=== PATIENT | female | born 1965 | race Caucasian/White ===

== ENCOUNTER → 2017-08-09 | Outpatient (CLI) | payer SELFPAY ==
--- NOTE | 2017-08-09 15:36 | RAD ---
LUMBAR SPINE 2-3V Clinical Indication: STATUS POST LUMBAR FUSION X 8 WKS Comparison: None. Findings: There are 5 nonrib-bearing lumbar-type vertebral bodies. The normal lumbar lordosis is maintained. 1.3 cm anterolisthesis of L4 on L5. Postsurgical changes of L4-L5 posterior fusion. No evidence of perihardware lucency or hardware fracture. The interbody disc spacer posterior radiopaque marker lines up directly with the posterior aspect of the L4 vertebral body. IMPRESSION: Postsurgical changes of L4-L5 posterior fusion. The interbody disc spacer posterior radiopaque marker lines up directly with the posterior aspect of the L4 vertebral body. 1.3 cm anterolisthesis of L4 on L5.
== END | disposition home or self-care (01) ==
LOC: DXRADRC 12:18
PROVIDERS: ATTEND Neurological Surgery
DX: M43.26 Fusion of spine, lumbar region (principal)
CPT/HCPCS: 72100

== ENCOUNTER → 2017-09-16 | Outpatient (CLI) | payer BC ==
--- NOTE | 2017-09-16 14:41 | RAD ---
DATE: September 16, 2017 EXAM: DIGITAL DIAGNOSTIC LT, BREAST LEFT HISTORY: Abnormal outside screening mammogram. COMPARISON: August 19, 2017. TECHNIQUE: Patient arrived for a limited left breast ultrasound. Subsequently, compression CC and MLO views along with an ML view of the left breast was performed. This study was interpreted with the benefit of Computerized Aided Detection (CAD). FINDINGS: Area of concern on screening mammogram has no correlate on the left breast ultrasound. Therefore, diagnostic mammogram was performed. Breast ultrasound demonstrated no abnormality elsewhere within the upper outer quadrant. The breast parenchyma demonstrates scattered fibroglandular densities, category B. The mass in the outer left breast at about the 3:00 position is well-circumscribed, appears to have a fatty notch. A second potential lesion deeper in the outer left breast also appears to have fatty notch. There are no suspicious groupings of microcalcifications . There are a few benign calcifications. IMPRESSION: Probably benign intraparenchymal lymph nodes in the left breast. BI-RADS CATEGORY: 3 PROBABLE BENIGN-SHORT TERM F/U RECOMMENDED FOLLOW-UP: 6M 6 MONTH FOLLOW-UP Follow-up will be a diagnostic left mammogram, with ultrasound if needed. PQRS compliance statement: Patient information was entered into a reminder system with a target due date for the next mammogram. Mammography is a sensitive method for finding small breast cancers, but it does not detect them all and is not a substitute for careful clinical examination. A negative mammogram does not negate a clinically suspicious finding and should not result in delay in biopsying a clinically suspicious abnormality. "Our facility is accredited by the [employer] Mammography Program."
== END | disposition home or self-care (01) ==
LOC: US 12:37
PROVIDERS: ATTEND Family Medicine
DX: R92.1 Mammographic calcification found on diagnostic imaging of breast (principal)
CPT/HCPCS: 76641; G0206; 77065

== ENCOUNTER → 2017-12-02 | Outpatient (CLI) | payer MEDICAID ==
--- NOTE | 2017-12-02 13:39 | RAD ---
3 views lumbar spine 12/02/2017 Indication: Low back pain. Comparison study: Lumbar spine radiographs August 09, 2017 Findings: Instrumented fusion now extends from L4 through S1. Associated laminectomy noted. Radiographically hardware appears to be intact. There is interval reduction in anterolisthesis of L4 and L5. Disc prosthesis remains in place. Anterolisthesis now measures approximately 5 mm. Near total loss of disc space at L5-S1 is similar. No evidence of acute fracture or alignment abnormality is identified. No acute soft tissue changes are seen. Impression: Postoperative changes as described. An acute osseous abnormality is not identified.
== END | disposition home or self-care (01) ==
LOC: DXRAD 13:00
PROVIDERS: ATTEND Neurological Surgery
DX: M54.5 Low back pain (principal); Z98.890 Other specified postprocedural states
CPT/HCPCS: 72100

== ENCOUNTER 2018-02-01 11:34 | Emergency (ER) | payer MEDICAID ==
[2018-02-01 11:40] VITALS: BP 112/64
[2018-02-01] MEDS ORDERED: AMOX1TAB61 PO (11:57)
[2018-02-01] MEDS ORDERED: LIDOCAINE 1% Multi-Dose 20 ML VIAL. ONE (11:57)
--- NOTE | 2018-02-01 11:58 | PHYS DOC ---
Adult General Chief Complaint Chief Complaint: DENTAL PROBLEM HPI HPI Patient is a 52-year-old female sent from urgent care with the complaint of dental abscess. Patient says this started yesterday. She has had a bad tooth for quite some time. She went to the urgent care but they sent her here. She denies fever or chills. States that she is having a lot of pain. She has Percocet at home and has taken that today. Allergic to sulfa Review of Systems Review of Systems Constitutional: Denies fever or chills [] HENT: As in history of present illness Respiratory: Denies shortness of breath [] Current Medications Current Medications Current Medications Medications (Trade) Dose Ordered Sig/Yehuda Start Time Stop Time Status Last Admin Dose Admin Lidocaine/Sodium Bicarbonate (Buffered Lidocaine 1%) 3 ml 1X ONCE 02/01/18 12:00 02/01/18 12:01 UNV Physical Exam Physical Exam Constitutional: Well developed, well nourished, appears uncomfortable, alert, mentating normally. HENT: Normocephalic, atraumatic, large area of swelling on the right lateral mandible area. No redness, no evidence of cellulitis. Oral exam: Diffuse significant dental disease including fractured teeth. Right mandibular first molar is fractured at the gumline. There is significant swelling external to the mandible. There is no clear fluctuant area and no clear bulging area indicative of abscess, but there is significant swelling in the gutter next to the affected tooth. Eyes: conjunctiva normal, no discharge. [] Neck: Normal range of motion, no stridor. [] Skin: Warm, dry, no erythema, no rash. [] Extremities: No tenderness, no cyanosis, no clubbing, ROM intact, no edema. [] Neurologic: Alert and oriented X 3, normal motor function, no focal deficits noted. [] EKG EKG [] Radiology/Procedures Radiology/Procedures Procedure: Incision and drainage of dental abscess 1% lidocaine plain, buffered was injected over the area of swelling in the gutter between the patient's fractured tooth and the area of swelling. A scalpel was used to make an incision lateral to the affected tooth over the area of expected abscess. Although I believe the incision was appropriately placed and deep enough, no purulent drainage was obtained.[] Course & Med Decision Making Course & Med Decision Making Pertinent Labs and Imaging studies reviewed. (See chart for details) 52-year-old female presents with swelling and pain adjacent to a fractured tooth. With the amount of swelling, I thought I might be able to get some drainage of pus, but despite appropriately placed incision, no pus was located. It may just be cellulitis at this time. We will start the patient on antibiotics and encourage dental follow-up as soon as possible. See instructions for plan. [] Dragon Disclaimer Dragon Disclaimer This electronic medical record was generated, in whole or in part, using a voice recognition dictation system. Departure Departure: Impression: Primary Impression: Dental abscess Disposition: HOME, SELF-CARE Condition: STABLE Referrals: ALETHEA VINSON DO (PCP) Patient Instructions: Dental Abscess Additional Instructions: It's very important to see your dentist on Saturday. Call first thing Saturday morning for an appointment. You need to have dental care, likely extraction of that tooth, before this will actually heal fully. Fill your prescription and start the antibiotics as directed immediately. Take the first dose immediately and the second dose at bedtime tonight, then every 12 hours after that. Drink plenty of fluids to stay hydrated and laid around and rest this weekend while getting the antibiotics into your system. If you have vomiting and are not able to stay hydrated or take your antibiotics , return to ER. Scripts Amoxicillin/Potassium Clav (AUGMENTIN 875-125 TABLET) 1 Each Tablet 1 TAB PO BID for dental abscess, #20 TAB Prov: ÁLVARO LABOY MD 02/01/18 ÁLVARO LABOY MD Feb 01, 2018 11:58
[2018-02-01] MEDS ORDERED: LIDOCAINE WITH 8.4% SOD BICARB 3 ML DISP.SYRIN. IJ ONE (12:00)
== END 2018-02-01 12:32 | disposition home or self-care (01) ==
LOC: ER 11:34
DX: K04.7 Periapical abscess without sinus (principal); Z88.2 Allergy status to sulfonamides
CPT/HCPCS: 41800; 99283

== ENCOUNTER 2018-02-24 15:23 | Emergency (ER) | payer MEDICAID ==
[~2018-02-24] VITALS: Ht 162.6 cm; Wt 98.9 kg
[~2018-02-24 15:23] MED LIST: AMOX1TAB61 PO
[2018-02-24] MEDS ORDERED: IV NORMAL SALINE 1,000ML 1,000 ML IV SCH (15:57)
[2018-02-24] MEDS ORDERED: 0.9 % SODIUM CHLORIDE 10 ML DISP.SYRIN. IV PRN (16:00)
[2018-02-24 16:15] LABS: BASO % 1 % (0-3); EOS # 0.5 x10^3/uL (0.0-0.7); EOS % 7 % (0-3); HEMATOCRIT 33.3 % (36.0-47.0); LYMPH # 2.3 x10^3/uL (1.0-4.8); LYMPH % 32 % (24-48); MEAN CORPUSCULAR HEMOGLOBIN 27 pg (25-35); MEAN CORPUSCULAR HGB CONC 33 g/dL (31-37); MEAN CORPUSCULAR VOLUME 81 fL (79-100); MONO # 0.4 x10^3/uL (0.0-1.1); MONO % 6 % (0-9); NEUT % 55 % (31-73); PLATELET COUNT 406 x10^3/uL (140-400); RED CELL DISTRIBUTION WIDTH 19.2 % (11.5-14.5); WHITE BLOOD COUNT 7.2 x10^3/uL (4.0-11.0)
[2018-02-24 16:26] LABS: AMPHETAMINE/METHAMPHETAMINE NEG (NEG); BARBITURATES NEG (NEG); BENZODIAZEPINES POS (NEG); CANNABINOIDS NEG (NEG); COCAINE NEG (NEG); METHADONE NEG (NEG); OPIATES NEG (NEG); PHENCYCLIDINE NEG (NEG)
[2018-02-24 16:29] LABS: ALBUMIN 3.4 g/dL (3.4-5.0); ALBUMIN/GLOBULIN RATIO 0.9 (1.0-1.7); CALCIUM 8.6 mg/dL (8.5-10.1); TOTAL BILIRUBIN 0.2 mg/dL (0.2-1.0); TOTAL PROTEIN 7.1 g/dL (6.4-8.2)
--- NOTE | 2018-02-24 16:30 | PHYS DOC ---
Past History Past Medical History: Anxiety, Bipolar, Depression, Hypertension Past Surgical History: , Hysterectomy, Other Alcohol Use: None Drug Use: None Adult General Chief Complaint Chief Complaint: NAUSEA/VOMITING/ABDOMINAL PAIN HPI HPI 52-year-old female patient with history of bipolar disorder and hypertension complaining of epigastric pain for 2 weeks as a constant pain that getting worse with eating. Patient states the pain is a sharp pain without radiation and rated her pain 4/10. Patient complaining of nausea and one episode of vomiting last night and intermittent episodes of diarrhea for the last 2 weeks. Patient was seen by her primary care physician yesterday and treated with GI cocktail without improvement of her condition. Patient state her doctor. office called her today and told she had abnormal lab and come to ER. Dr. pickens was contacted and he stated that patient had marked anemia and abnormal electrolyte with complaining of increasing abdominal pain and recommended to come to ER for a more evaluation. Review of Systems Review of Systems Constitutional: Reports subjective fever and chills] Eyes: Denies change in visual acuity, redness, or eye pain [] HENT: Denies nasal congestion or sore throat [] Respiratory: Denies cough or shortness of breath [] Cardiovascular: No additional information not addressed in HPI [] GI: Reports abdominal pain, nausea, vomiting, diarrhea [] : Denies dysuria or hematuria [] Musculoskeletal: Denies back pain or joint pain [] Integument: Denies rash or skin lesions [] Neurologic: Denies headache, focal weakness or sensory changes [] Endocrine: Denies polyuria or polydipsia [] All other systems were reviewed and found to be within normal limits, except as documented in this note. Current Medications Current Medications Current Medications Medications (Trade) Dose Ordered Sig/Yehuda Start Time Stop Time Status Last Admin Dose Admin Sodium Chloride (Normal Saline Flush) 10 ml QSHIFT PRN 02/24/18 16:00 Allergies Allergies Allergies Coded Allergies Type Severity Reaction Last Updated Verified Sulfa (Sulfonamide Antibiotics) Allergy Unknown 02/01/18 Yes Physical Exam Physical Exam Constitutional: Well well nourished, mild distress, non-toxic appearance. [] HENT: Normocephalic, atraumatic, oropharynx moist, no oral exudates. [] Eyes: PERRLA, EOMI, conjunctiva normal, no discharge. [] Neck: Normal range of motion, no tenderness, supple, no stridor. [] Cardiovascular:Heart rate regular rhythm, no murmur [] Lungs & Thorax: Bilateral breath sounds clear to auscultation [] Abdomen: Bowel sounds normal, epigastric and right upper quadrant guarding, soft , no tenderness, no masses, no pulsatile masses. [] Skin: Warm, dry, no erythema, no rash. [] Back: No tenderness, no CVA tenderness. [] Extremities: No tenderness, no cyanosis, no clubbing, ROM intact, no edema. [] Neurologic: Alert and oriented X 3, normal motor function, normal sensory function, no focal deficits noted. [] Psychologic: Anxious, judgement normal, mood normal. [] Current Patient Data Vital Signs Vital Signs Date Time Temp Pulse Resp B/P (MAP) Pulse Ox O2 Delivery O2 Flow Rate FiO2 02/24/18 15:32 99.0 104 16 97 Room Air Lab Results Laboratory Tests Test 02/24/18 15:50 White Blood Count 7.2 x10^3/uL (4.0-11.0) Red Blood Count 4.10 x10^6/uL (3.50-5.40) Hemoglobin 11.0 g/dL (12.0-15.5) L Hematocrit 33.3 % (36.0-47.0) L Mean Corpuscular Volume 81 fL (79-100) Mean Corpuscular Hemoglobin 27 pg (25-35) Mean Corpuscular Hemoglobin Concent 33 g/dL (31-37) Red Cell Distribution Width 19.2 % (11.5-14.5) H Platelet Count 406 x10^3/uL (140-400) H Neutrophils (%) (Auto) 55 % (31-73) Lymphocytes (%) (Auto) 32 % (24-48) Monocytes (%) (Auto) 6 % (0-9) Eosinophils (%) (Auto) 7 % (0-3) H Basophils (%) (Auto) 1 % (0-3) Neutrophils # (Auto) 4.0 x10^3uL (1.8-7.7) Lymphocytes # (Auto) 2.3 x10^3/uL (1.0-4.8) Monocytes # (Auto) 0.4 x10^3/uL (0.0-1.1) Eosinophils # (Auto) 0.5 x10^3/uL (0.0-0.7) Basophils # (Auto) 0.0 x10^3/uL (0.0-0.2) EKG EKG [] Radiology/Procedures Radiology/Procedures [] [address] [address] IMAGING REPORT Signed PATIENT: PIO ELLIOTT ACCOUNT: [id number] : 1965 LOCATION: ER AGE: 52 SEX: F EXAM STATUS: REG ER ORD. PHYSICIAN: SARAH OLGUIN MD REASON: epigastric pain PROCEDURE: ABDOMEN LTD EXAM: Abdomen sonogram. HISTORY: Pain. TECHNIQUE: Sonographic imaging of the abdomen was performed. COMPARISON: None. FINDINGS: The liver is normal in size. No focal hepatic lesion is seen. The gallbladder is unremarkable. The common bile duct is upper normal in caliber for patient age. The right kidney is unremarkable. The pancreas is partially obscured due to bowel gas. The inferior vena cava is patent. The aorta is not assessed. IMPRESSION: Relatively unremarkable abdomen sonogram, with limited evaluation of the pancreas due to bowel gas. Electronically signed by: Meg Crook MD (02/24/2018 5:27 PM) [facility] DICTATED AND SIGNED BY: MEG CROOK MD DATE: 02/24/18 1726 CC: ALETHEA VINSON DO; SARAH OLGUIN MD ~ Course & Med Decision Making Course & Med Decision Making Pertinent Labs and Imaging studies reviewed. (See chart for details) Evaluation of patient in ER showed 51-year-old female patient with complaining of chronic abdominal pain and nausea and vomiting. She had colonoscopy last year and had history of chronic hyponatremia and hypokalemia. Patient treated with IV fluid and Zofran and felt better. Patient informed to follow with her primary care physician regarding chronic abdominal pain and anemia. discharge: I've spoken with the patient and/or caregivers. I've explained the patient's condition, diagnosis and treatment plan based on information available to me at this time. I've answered the patient's and/or caregivers questions and addressed any concerns. The patient and/or caregivers have a good understanding the patient's diagnosis, condition and treatment plan as can be expected at this point. Vital signs have been stabilized. The patient's condition is stable for discharge from the emergency department. The patient will pursue further outpatient evaluation with her primary care provider or other designated consulting physician as outlined in the discharge instructions. Patient and/or caregivers are agreeable to this plan of care and follow-up instructions have been explained in detail. The patient and/or caregivers have received these instructions in written format and expressed understanding of these discharge instructions. The patient and her caregivers are aware that if any significant change in condition or worsening of symptoms should prompt him to immediately return to this of the closest emergency department. If an emergent department is not readily available I would encourage him to call 911. [] Dragon Disclaimer Dragon Disclaimer This electronic medical record was generated, in whole or in part, using a voice recognition dictation system. Departure Departure: Impression: Primary Impression: Chronic abdominal pain Additional Impressions: Anemia Hyponatremia Anxiety Nausea and vomiting Tobacco abuse Tobacco abuse counseling Disposition: HOME, SELF-CARE (At 1743) Condition: IMPROVED Referrals: ALETHEA VINSON DO (PCP) Patient Instructions: Abdominal Pain, Anemia, FAQs, Hyponatremia, Nausea and Vomiting, Smoking Cessation Additional Instructions: Follow-up with your primary care physician in 3-5 days Return to ER if not getting better Scripts Ranitidine Hcl (ZANTAC) 150 Mg Tablet 1 TAB PO BID, #30 TAB 3 Refills Prov: SARAH OLGUIN MD 02/24/18 Ondansetron (ZOFRAN ODT) 4 Mg Tab.rapdis 1 TAB SL Q8HRS, #15 TAB Prov: SARAH OLGUIN MD 02/24/18 Problem Qualifiers SARAH OLGUIN MD Feb 24, 2018 16:29
[2018-02-24 16:51] LABS: BACTERIA,URINE 0 /HPF (0-FEW); BILIRUBIN,URINE NEG (NEG); CLARITY,URINE HAZY; COLOR,URINE YELLOW; GLUCOSE,URINE NEG (NEG); NITRITE,URINE NEG (NEG); SQUAMOUS EPITHELIAL CELL,UR MANY /LPF; UROBILINOGEN,URINE 0.2 mg/dL (0.2 mg/dL)
[2018-02-24 16:52] LABS: HYALINE CASTS, URINE MANY /HPF
--- NOTE | 2018-02-24 17:30 | RAD ---
EXAM: Abdomen sonogram. HISTORY: Pain. TECHNIQUE: Sonographic imaging of the abdomen was performed. COMPARISON: None. FINDINGS: The liver is normal in size. No focal hepatic lesion is seen. The gallbladder is unremarkable. The common bile duct is upper normal in caliber for patient age. The right kidney is unremarkable. The pancreas is partially obscured due to bowel gas. The inferior vena cava is patent. The aorta is not assessed. IMPRESSION: Relatively unremarkable abdomen sonogram, with limited evaluation of the pancreas due to bowel gas. Electronically signed by: Meg Goodman MD (02/24/2018 5:27 PM) [facility]
[2018-02-24] MEDS ORDERED: ONDA4TAB10 SL (17:45)
[2018-02-24] MEDS ORDERED: RANI150T6 PO (17:45)
[2018-02-24 17:54] VITALS: BP 141/89
== END 2018-02-24 17:56 | disposition home or self-care (01) ==
LOC: ER 15:23
DX: G89.29 Other chronic pain (principal); R10.13 Epigastric pain; E87.1 Hypo-osmolality and hyponatremia; D64.9 Anemia, unspecified; F41.9 Anxiety disorder, unspecified; F31.9 Bipolar disorder, unspecified; I10 Essential (primary) hypertension; Z88.2 Allergy status to sulfonamides
CPT/HCPCS: 36415; 76705; 80053; 80307; 81001; 83690; 85025; 96360; 99285-25; G0479; J7030

== ENCOUNTER → 2018-11-17 | Outpatient (CLI) | payer BC, MEDICAID ==
[~2018-11-17] MED LIST changes: +ONDA4TAB10 SL; +RANI150T21 PO
--- NOTE | 2018-11-17 11:53 | RAD ---
DATE: 11/17/2018 EXAM: DIGITAL SCREEN BILAT W/CAD HISTORY: Routine screening COMPARISON: 08/19/2017, 09/16/2017 This study was interpreted with the benefit of Computerized Aided Detection (CAD). Breast Density: SCATTERED The breast parenchyma shows scattered fibroglandular densities. Breast parenchyma level B. FINDINGS: 2 nodules in the lateral aspect of the left breast are unchanged since the previous study. There probably intramammary lymph nodes. No new or enlarging breast densities are seen. Minimal benign type calcification is present. No suspicious microcalcifications have developed. IMPRESSION: 1. Stable small left breast nodules, probably intramammary lymph nodes. 2. No new mammographic abnormality is detected BI-RADS CATEGORY: 2 BENIGN FINDING(S) RECOMMENDED FOLLOW-UP: 12M 12 MONTH FOLLOW-UP PQRS compliance statement: Patient information was entered into a reminder system with a target due date for the next mammogram. Mammography is a sensitive method for finding small breast cancers, but it does not detect them all and is not a substitute for careful clinical examination. A negative mammogram does not negate a clinically suspicious finding and should not result in delay in biopsying a clinically suspicious abnormality. "Our facility is accredited by the [employer] Mammography Program."
--- NOTE | 2018-11-17 18:08 | RAD ---
CT of the paranasal sinuses without contrast, 11/17/2018: HISTORY: Sinusitis with headache Noncontrast scans were obtained with multiplanar reconstructions produced. There is mild mucosal thickening involving the anterior aspect of the left ethmoid sinus. This involves the left ethmoid infundibulum of the ostiomeatal complex. The other paranasal sinuses are clear. No free fluid is evident in the sinuses. No bony abnormality is detected. The orbital contents are unremarkable. IMPRESSION: Mild mucosal thickening involving the left ethmoid sinus and ostiomeatal complex. PQRS Compliance Statement: One or more of the following individualized dose reduction techniques were utilized for this examination: 1. Automated exposure control 2. Adjustment of the mA and/or kV according to patient size 3. Use of iterative reconstruction technique Electronically signed by: Miah Russell MD (11/17/2018 6:04 PM) [facility]
== END | disposition home or self-care (01) ==
LOC: CT 10:38
PROVIDERS: ATTEND Specialist
DX: Z12.31 Encounter for screening mammogram for malignant neoplasm of breast (principal); N64.89 Other specified disorders of breast; J01.41 Acute recurrent pansinusitis
CPT/HCPCS: 70486; 77067

== ENCOUNTER → 2019-02-24 | Outpatient (CLI) | payer BC ==
--- NOTE | 2019-02-24 17:26 | RAD ---
CT study of the lumbar spine without contrast Clinical indications: Low back pain. History of surgery. TECHNIQUE: Noncontrast helical CT scanning of the lumbar spine was performed. Multiplanar 2-D reconstructions were generated. PQRS compliance Statement One or more of the following individualized dose reduction techniques were utilized for this study: 1. Automated exposure control 2. Adjustment of the mA and/or kV according to patient size 3. Use of iterative reconstruction technique COMPARISON: Radiographic series of the lumbar spine dated December 02, 2017. FINDINGS: No compression fracture or discitis or lytic process is seen. The transverse processes are intact. There is a grade 1 anterolisthesis of L4-5 which is unchanged from the lumbar spine study. Bilateral transpedicular screws are seen at L4 and L5 and S1 connected by 2 vertical metallic stabilizer bars. Interbody disc space fusion device is seen within the L4-5 disc space. No radiolucent pars defect is evident. No loosening of hardware is seen. At T12-L1, no significant focal disc protrusion or spinal canal stenosis or neural foraminal narrowing is seen. At L1-2, no significant focal disc protrusion or spinal canal stenosis or neural foraminal narrowing is seen. At L2-3, no significant focal disc protrusion or spinal canal stenosis or neural foraminal narrowing is seen. At L3-4, mild retrolisthesis is seen. There is a mild diffuse disc protrusion and mild degenerative endplate spurring at this level. Facet arthropathy and ligamentum flavum hypertrophy is seen. These findings combine to form a mild spinal canal stenosis. The neural foramina are mildly narrowed bilaterally at this level. At L4-5, grade 1 anterolisthesis is seen. There is mild diffuse disc protrusion. Decompressive laminectomy is seen at this level. There is no significant narrowing of the neural foramina. Streak artifact from metallic surgical hardware limits evaluation of this level. At L5-S1, there is severe degenerative disc space narrowing and moderate degenerative endplate spurring. There is mild diffuse disc protrusion. There is a mild spinal canal stenosis at this level. There is moderate narrowing of the neural foramina bilaterally. IMPRESSION: Stable grade 1 anterolisthesis of L4-5. Stable fusion from L4 through S1. Mild retrolisthesis of L3-4 which is a new finding since the previous lumbar spine x-ray study dated December 02, 2017. No compression fracture or discitis is evident. Stable severe degenerative disc space narrowing at L5-S1. Decompressive laminectomy at L4-5. Mild spinal canal stenosis at L3-4 and L5-S1. Moderate narrowing of the neural foramina bilaterally at L5-S1. Electronically signed by: Andrea Naidu MD (02/24/2019 5:23 PM) [facility]
== END | disposition home or self-care (01) ==
LOC: CT 10:43
PROVIDERS: ATTEND Specialist
DX: M48.062 Spinal stenosis, lumbar region with neurogenic claudication (principal); M48.08 Spinal stenosis, sacral and sacrococcygeal region; M43.16 Spondylolisthesis, lumbar region; M51.16 Intervertebral disc disorders with radiculopathy, lumbar region; M43.27 Fusion of spine, lumbosacral region; M53.3 Sacrococcygeal disorders, not elsewhere classified; M51.37 Other intervertebral disc degeneration, lumbosacral region; M96.1 Postlaminectomy syndrome, not elsewhere classified; M79.18 Myalgia, other site; M79.12 Myalgia of auxiliary muscles, head and neck
CPT/HCPCS: 72131